=== PATIENT | female | born 1995 | race Two or more races ===

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

== ENCOUNTER 2019-01-11 17:29 | Emergency (ER) | payer MEDICAID, OTHER ==
[~2019-01-11] VITALS: Ht 160 cm; Wt 86.2 kg
[~2019-01-11 17:29] MED LIST changes: +CEPH-264 PO; +HYDR-3164 PO; -HYDR-971 PO
[2019-01-11 18:00] VITALS: BP 119/77
[2019-01-11] MEDS ORDERED: LIDO:MAALOX 1:1 20 ML SINGLE DOSE. SWSW ONE (18:00)
[2019-01-11] MEDS ORDERED: FAMO20TA5 PO (18:20)
[2019-01-11] MEDS ORDERED: NYST15PO9 TP (18:20)
--- NOTE | 2019-01-11 18:20 | PHYS DOC ---
Past Medical History Past Medical History: No Pertinent History, Gallstones (MARION VALENTE APRN) Past Surgical History: Appendectomy, Cholecystectomy (MARION VALENTE APRN) Alcohol Use: None Drug Use: None (MARION VALENTE APRN) Adult General Chief Complaint Chief Complaint: HEARTBURN/GI DISTRESS HPI HPI Patient is a 23 year old female with history of cholecystectomy 3 years ago who presents to the ED today complaining of heartburn. Patient states for the last 1 week she's had intermittent episodes of heartburn when she eats certain foods. Patient denies any nausea, vomiting. Denies any abdominal pain. Denies any chance she is She is also requesting to be evaluated for a rash in between her breast that she's had on and off for months. (MARION VALENTE APRN) Review of Systems Review of Systems Constitutional: Denies fever or chills [] Eyes: Denies change in visual acuity, redness, or eye pain [] HENT: Denies nasal congestion or sore throat [] Respiratory: Denies cough or shortness of breath [] Cardiovascular: No additional information not addressed in HPI [] GI: Reports heartburn. Denies abdominal pain, nausea, vomiting, bloody stools or diarrhea [] : Denies dysuria or hematuria [] Musculoskeletal: Denies back pain or joint pain [] Integument: Reports rash in between her breasts Neurologic: Denies headache, focal weakness or sensory changes [] All other systems were reviewed and found to be within normal limits, except as documented in this note. (MARION VALENTE APRN) Current Medications Current Medications Current Medications Medications (Trade) Dose Ordered Sig/Duy Start Time Stop Time Status Last Admin Dose Admin Multi-Ingredient Mouthwash/Gargle (Gi Cocktail) 20 ml 1X ONCE 01/11/19 18:00 01/11/19 18:04 DC 01/11/19 18:09 20 ML (OLEG MONTELONGO DO) Allergies Allergies Allergies Coded Allergies Type Severity Reaction Last Updated Verified No Known Drug Allergies 01/26/15 No (OLEG MONTELONGO DO) Physical Exam Physical Exam Constitutional: Well developed, well nourished, no acute distress, non-toxic appearance. [] HENT: Normocephalic, atraumatic, bilateral external ears normal, oropharynx moist, no oral exudates, nose normal. [] Eyes: PERRLA, EOMI, conjunctiva normal, no discharge. [] Neck: Normal range of motion, no tenderness, supple, no stridor. [] Cardiovascular:Heart rate regular rhythm, no murmur [] Lungs & Thorax: Bilateral breath sounds clear to auscultation [] Abdomen: Bowel sounds normal, soft, no tenderness, no masses, no pulsatile masses. [] Skin: Warm, dry, nonerythematous rash noted in between her breast consistent with a fungal infection. Back: No tenderness, no CVA tenderness. [] Extremities: No tenderness, no cyanosis, no clubbing, ROM intact, no edema. [] Neurologic: Alert and oriented X 3, normal motor function, normal sensory function, no focal deficits noted. [] Psychologic: Affect normal, judgement normal, mood normal. [] (MARION VALENTE APRN) Current Patient Data Vital Signs Vital Signs Date Time Temp Pulse Resp B/P (MAP) Pulse Ox O2 Delivery O2 Flow Rate FiO2 01/11/19 18:00 90 16 119/77 (91) 97 Room Air 01/11/19 17:47 98.0 98.0 (OLEG MONTELONGO DO) Lab Values Laboratory Tests Test 01/11/19 17:50 POC Urine HCG, Qualitative Hcg negative (Negative) (OLEG MONTELONGO DO) EKG EKG [] (MARION VALENTE APRN) Radiology/Procedures Radiology/Procedures [] (MARION VALENTE APRN) Course & Med Decision Making Course & Med Decision Making Pertinent Labs and Imaging studies reviewed. (See chart for details) This is a 23-year-old female patient who presents to the ED today with c omplaints of heartburn-discussed with the patient several options of [id number] remedies for heartburn. Prescription for Pepcid given. Acid reflex diet also discussed. Also given prescription for nystatin for the rash in between her breast. The rash appears fungal. Follow-up with her PCP in the next 1-2 weeks. (MARION VALENTE APRN) Dragon Disclaimer Dragon Disclaimer This electronic medical record was generated, in whole or in part, using a voice recognition dictation system. (MARION VALENTE APRN) Departure Departure Impression: Primary Impression: GERD (gastroesophageal reflux disease) Additional Impression: Candidiasis, cutaneous Disposition: HOME, SELF-CARE Condition: STABLE Referrals: UNKNOWN PCP NAME (PCP) AIMEE HARTMAN MD Follow up with your primary care doctor or the provided GI doctor. Patient Instructions: Diet for Gastroesophageal Reflux Disease, Adult, Gastroesophageal Reflux Disease, Adult Additional Instructions: You were evaluated in the emergency room for heartburn, as discussed avoid eating greasy foods, fatty foods, spicy foods. Avoid eating heavy meals. Avoid eating late in the evening and going to bed. Take the prescribed medications as ordered. Use the prescribed medication for your breast rash as ordered. Scripts Nystatin (NYSTATIN) 15 Gm Powder 1 ONESIMO TP BID, #1 BOTTLE 1 Refill Prov: MARION VALENTE APRN 01/11/19 Famotidine (FAMOTIDINE) 20 Mg Tablet 20 MG PO DAILY, #7 TAB Prov: MARION VALENTE APRN 01/11/19 Attending Signature Attending Signature I have reviewed the PA/CENTRAL SERVICES TECH's note and plan of care. I was available for c onsultation as needed during the patient's visit in the emergency department. I agree with the clinical impression, plan, and disposition. (OLEG MONTELONGO DO) Problem Qualifiers Primary Impression: GERD (gastroesophageal reflux disease) Esophagitis presence: esophagitis presence not specified Qualified Codes: K21.9 - Gastro-esophageal reflux disease without esophagitis MARION VALENTE APRN Jan 11, 2019 18:20 OLEG MONTELONGO DO Jan 12, 2019 01:15
== END 2019-01-11 18:30 | disposition home or self-care (01) ==
LOC: ER 17:29
DX: K21.9 Gastro-esophageal reflux disease without esophagitis (principal); R12 Heartburn; B37.2 Candidiasis of skin and nail; Z90.89 Acquired absence of other organs; Z90.49 Acquired absence of other specified parts of digestive tract
CPT/HCPCS: 81025; 99283